=== PATIENT | female | born 1950 | race Caucasian/White ===

== ENCOUNTER 2020-06-25 01:56 | Emergency (ER) | payer MEDICARE ==
[2020-06-25] MEDS ORDERED: Furosemide 100 MG/10 ML VIAL ONE (02:33)
[2020-06-25] MEDS ORDERED: Sodium Chloride 0.9% 100 ML ONE (02:52)
[2020-06-25] MEDS ORDERED: Cefepime 2 GM VIAL ONE (02:52)
[2020-06-25 03:08] LABS: Anisocytosis SLIGHT = 6-15 cells (100X) (0-5/hpf); Band 12 % (5-11); Hemoglobin 13.7 g/dL (12.0-16.0); Lymphocytes 14 % (21-51); MDiff Complete? YES; Mean Corpuscular Hemoglobin 29.1 pg (27.0-31.0); Mean Corpuscular Volume 90.8 fL (78.0-98.0); Monocytes 6 % (0-10); Neutrophil 68 % (42-75); Ovalocytes SLIGHT = 2-5 cells (100X) (0-1/hpf); Platelet Count 233 thou/uL (130-400); Platelet Morphology Comment Appears Adequate; RBC Distribution Width 16.4 % (11.5-14.5); Toxic Granulation SLIGHT; White Blood Cell (WBC) Count 29.4 thou/uL (4.8-10.8)
[2020-06-25 03:09] LABS: ALT (SGPT) 17 U/L (8-55); AST (SGOT) 18 U/L (5-34); Albumin 3.6 g/dL (3.4-4.8); Alkaline Phosphatase 150 U/L (40-110); Anion Gap 16 mmol/L (10-20); BUN (Urea Nitrogen) 17 mg/dL (9.8-20.1); Bilirubin, Total 0.9 mg/dL (0.2-1.2); Calc. Creatinine Clearance 0 mL/min (70-130); Calcium 8.7 mg/dL (7.8-10.44); Carbon Dioxide 25 mmol/L (23-31); Chloride 101 mmol/L (98-107); Estimated GFR-MDRD 38; Globulin 3.2 g/dL (2.4-3.5); Glucose 287 mg/dL (83-110); Potassium 4.3 mmol/L (3.5-5.1); Protein, Total 6.8 g/dL (6.0-8.3); Sodium 138 mmol/L (136-145)
[2020-06-25] MEDS ORDERED: Nitroglycerin 50 MG/250 ML BOT 250 ML ONE (03:43)
[2020-06-25 04:18] LABS: Bilirubin Small (Negative); Blood, Urine Negative (Negative); Clarity Clear (Clear); Glucose, Urine (Dipstick) Negative (Negative); Ketone, Urine Negative (Negative); Leukocyte Negative (Negative); Nitrite Negative (Negative); Protein, Urine (Dipstick) 100 mg/dL (Neg-Trace); Specific Gravity, Urine 1.018 (1.002-1.036); pH, Urine 5.5 (5.0-9.0)
[2020-06-25 04:19] LABS: RBC/HPF 0-3 HPF (0-3); WBC/HPF 0-3 HPF (0-3)
[2020-06-25 04:20] LABS: Bacteria/HPF 1+ HPF (None Seen); Mucous/LPF 1+ LPF (<2+)
--- NOTE | 2020-06-25 07:31 | RAD ---
PORTABLE CHEST: DATE: 06/25/2020. FINDINGS: An AP portable film at 0231 is presented with no prior films available for comparison. The patient is turned to the side which distorts some areas. There is increased opacification of the left lung, presumably pneumonia. It is difficult to tell if there is not some concomitant pulmonary edema as well. Small effusions are probably present. The heart is mildly enlarged and a cardiac pa cer/AICD Is present. IMPRESSION: 1. Increased opacity in the left lung. Pneumonia presumed until proven otherwise. 2. Probable mild congestive change. POS: HOME
[2020-06-30 00:37] LABS: Base Excess-Venous -0.2 mmol/L (-2.0 to 3.0); Bicarbonate (HCO3v) 30.8 mmol/L (22.0-28.0); CO2 Tension (PvCO2) 82.7 mmHg (40.0-50.0); Chloride 104 mmol/L (98-107); Hemoglobin - Calc 14.6 g/dL (12.0-16.0); Potassium 5.3 mmol/L (3.5-5.1); Sodium 139 mmol/L (138-145); T. Carbon Dioxide 33.4 mmol/L (22.0-28.0); vO2 Saturation-calc 77.9 % (60.0-85.0)
[2020-06-30 00:38] LABS: Calcium, Ionized 1.14 mmol/L (See Comments:)
== END 2020-06-25 03:22 | disposition short-term general hospital (02) ==
LOC: BURERS 01:56
DX: J96.90 Respiratory failure, unspecified, unspecified whether with hypoxia or hypercapnia (principal); I50.9 Heart failure, unspecified; N39.0 Urinary tract infection, site not specified; E66.01 Morbid (severe) obesity due to excess calories
CPT/HCPCS: 36415; 71045; 80053; 81003; 81015; 82330; 82803; 83880; 84484; 85025; 93005; 96365; 96367; 96375; J0692; J1940; J3490